=== PATIENT | female | born 1940 | race Caucasian/White ===

== ENCOUNTER → 2016-09-23 | Outpatient (CLI) | payer MEDICARE, OTHER ==
[~2016-09-23] MED LIST: HYDR-3533 PO; LEVO.075 PO; LEVO150T7 PO; LORT5TAB PO
[2016-09-23 09:11] LABS: AUTOMATED NEUTROPHIL # 2.6 TH/MM3 (1.8-7.7); BASOPHIL % 0.9 % (0.0-2.0); EOSINOPHIL # 0.1 TH/MM3 (0-0.4); EOSINOPHIL % 3.1 % (0.0-4.0); HEMATOCRIT 40.4 % (35.0-46.0); HEMO FLAGS DIFF FINAL; LYMPH % 29.5 % (9.0-44.0); LYMPHOCYTE # 1.4 TH/MM3 (1.0-4.8); MEAN CELL VOLUME 93.6 FL (80.0-100.0); MEAN CORPUSCULAR HEMOGLOBIN 30.6 PG (27.0-34.0); MEAN CORPUSCULAR HGB CONC 32.7 % (32.0-36.0); MONO % 11.1 % (0.0-8.0); NEUT % 55.4 % (16.0-70.0); PLATELET COUNT 228 TH/MM3 (150-450); RED BLOOD COUNT 4.32 MIL/MM3 (4.00-5.30); RED CELL DISTRIBUTION WIDTH 14.3 % (11.6-17.2); WHITE BLOOD COUNT 4.7 TH/MM3 (4.0-11.0)
[2016-09-23 09:13] LABS: BLOOD, URINE NEG (NEG); COMMENT (UR) CULT NOT INDICATED; CULTURE IF INDICATED CULT NOT INDICATED; GLUCOSE,URINE NEG (NEG); KETONE, URINE NEG (NEG); MUCUS URINE FEW /lpf (OCC); NITRITE,URINE NEG (NEG); PH, URINE 6.5 (5.0-8.5); URINE COLOR LIGHT-YELLOW (YELLW/STRAW)
[2016-09-23 10:13] LABS: MICRO ALBUMIN RANDOM URINE RAW 23.4 MG/L (0.0-30.0)
[2016-09-23 10:53] LABS: ALKALINE PHOSPHATASE 120 U/L (45-117); ALT (GPT) 21 U/L (10-53); ANION GAP 7 MEQ/L (5-15); AST (GOT) 25 U/L (15-37); BICARBONATE 28.7 MEQ/L (21.0-32.0); BLOOD UREA NITROGEN 22 MG/DL (7-18); CHLORIDE 100 MEQ/L (98-107); FREE T3 2.27 PG/ML (2.18-3.98); FREE T4 1.33 NG/DL (0.76-1.46); GLOMERULAR FILTRATION RATE 57 ML/MIN (>89); GLUCOSE,FASTING 91 MG/DL (74-99); HDL CHOLESTEROL 87.8 MG/DL (40.0-60.0); LDL CHOLESTEROL 89 MG/DL (0-99); POTASSIUM 4.3 MEQ/L (3.5-5.1); SODIUM (NA) 136 MEQ/L (136-145); TOTAL BILIRUBIN ADULT 0.4 MG/DL (0.2-1.0)
== END ==
LOC: PLAB 07:08
PROVIDERS: ATTEND Family Medicine
DX: M85.80 Other specified disorders of bone density and structure, unspecified site (principal); Z00.00 Encounter for general adult medical examination without abnormal findings
CPT/HCPCS: 36415; 80053; 80061; 81001; 82043; 82306; 82607; 84439; 84443; 84481; 85025

== ENCOUNTER → 2016-10-07 | Outpatient (CLI) | payer MEDICARE, OTHER ==
--- NOTE | 2016-10-08 21:01 | EKG ---
Date Performed: 10/07/2016 Time Performed: 13:10:28 PTAGE: 76 years EKG: SINUS BRADYCARDIA LOW QRS VOLTAGE IN PRECORDIAL LEADS BORDERLINE ECG PREVIOUS TRACING : 05/08/2007 20.18 Compared to prior tracing no significant change DOCTOR: Andres Alicea Interpretating Date/Time 10/08/2016 21:01:04
== END ==
LOC: HCAV 12:54
PROVIDERS: ATTEND Ophthalmology
DX: Z01.810 Encounter for preprocedural cardiovascular examination (principal); H25.11 Age-related nuclear cataract, right eye
CPT/HCPCS: 93005

== ENCOUNTER 2017-01-29 12:56 | Emergency (ER) | payer OTHER, MEDICARE ==
[~2017-01-29] VITALS: Ht 162.6 cm; Wt 80.0 kg
[2017-01-29 12:59] VITALS: BP 127/60; PULSE 72; RESP 16; TEMP 98.1; O2SAT 97
[2017-01-29] MEDS ORDERED: LEVO112T2 PO (13:19)
--- NOTE | 2017-01-29 14:12 | PD ---
HPI Chief Complaint: Fall Time Seen by Provider: 13:11 Travel History International Travel<30 days: No Contact w/Intl Traveler<30days: No Traveled to known affect area: No History of Present Illness HPI 77 year-old woman presents emergency department after she slipped sitting in a chair and fell backwards and hit her head. She has tenderness in her head and head pain. No LOC. States she slipped and fell one time last night as well in the rain. She states she has felt a little more unsteady just today. No other recent illnesses or injuries. No other complaints. History Past Medical History Narrative Medical Hypothyroidism History of TIA Social History Alcohol Use: Yes (3X PER WK) Tobacco Use: No Allergies-Medications (Allergen,Severity, Reaction): Coded Allergies: No Known Allergies (Verified , 01/29/17) Reported Meds & Prescriptions Reported Meds & Active Scripts Active Reported Levothyroxine (Levothyroxine Sodium) 112 Mcg Tab 112 Mcg PO DAILY Review of Systems Except as stated in HPI: all other systems reviewed are Neg Physical Exam Narrative GENERAL: Well-appearing 77 year-old woman, no acute distress. SKIN: Focused skin assessment warm/dry. HEAD: Normocephalic. She is a little bit of areas of tenderness in the posterior occiput but no obvious bruising ecchymosis or swelling. EYES: Pupils equal and round. No scleral icterus. No injection or drainage. ENT: No nasal bleeding or discharge. Mucous membranes pink and moist. NECK: She is minimal midline neck tenderness. She has full range of motion of her neck. CARDIOVASCULAR: Regular rate and rhythm. No murmur appreciated. RESPIRATORY: No accessory muscle use. Clear to auscultation. Breath sounds equal bilaterally. GASTROINTESTINAL: Abdomen soft, non-tender, nondistended. Hepatic and splenic margins not palpable. MUSCULOSKELETAL: No obvious deformities. Data Data Last Documented VS Vital Signs Date Time Temp Pulse Resp B/P Pulse Ox O2 Delivery O2 Flow Rate FiO2 01/29/17 12:59 98.1 72 16 127/[address] Brain W/O Iv Contrast(Rout) (01/29/17 ) Acetaminophen (Tylenol) (01/29/17 14:15) MDM Medical Decision Making Medical Screen Exam Complete: Yes Emergency Medical Condition: Yes Interpretation(s) CT head negative. Differential Diagnosis Head injury, neck injury, contusion, other Narrative Course Medical decision-making new para 77-year-old with a slip and fall sitting in a chair and hit her head. She looks well. We'll check CT, likely negative. Outpatient follow-up. No evidence of severe neck injury. Diagnosis Primary Impression: Head injury, closed Additional Instructions: Take Tylenol as needed for pain. Up with her primary physician if you're not completely well in 3-5 days. Return to the emergency department for any new or worsening symptoms. Med/Other Pt SpecificInfo: No Change to Meds Disposition: 01 DISCHARGE HOME Condition: Stable Carter Bryant MD Jan 29, 2017 14:12
[2017-01-29] MEDS ORDERED: ACETAMINOPHEN 500 MG CPLT PO ONE (14:15)
--- NOTE | 2017-01-29 14:24 | RADRPT ---
EXAM DATE/TIME: 01/29/2017 13:57 [facility] COMPARISON: CT BRAIN W/O CONTRAST, March 19, 2016, 15:37. INDICATIONS : Trauma. Fell and hit back of head. Cephalgia. RADIATION DOSE: 64.84 CTDIvol (mGy) MEDICAL HISTORY : Cerebrovascular disease. Hypertension. SURGICAL HISTORY : Hysterectomy. ENCOUNTER: Initial ACUITY: 1 day PAIN SCALE: 8/10 LOCATION: cranial TECHNIQUE: Multiple contiguous axial images were obtained of the head. Using automated exposure control and adj ustment of the mA and/or kV according to patient size, radiation dose was kept as low as reasonably a chievable to obtain optimal diagnostic quality images. DICOM format image data is available electro nically for review and comparison. FINDINGS: CEREBRUM: The ventricles are normal for age. No evidence of midline shift, mass lesion, hemorrhage or acute in farction. No extra-axial fluid collections are seen. POSTERIOR FOSSA: The cerebellum and brainstem are intact. The 4th ventricle is midline. The cerebellopontine angle i s unremarkable. EXTRACRANIAL: The visualized portion of the orbits is intact. SKULL: The calvaria is intact. No evidence of skull fracture. CONCLUSION: Negative for an acute process. Carlos Burns MD FACR on January 29, 2017 at 14:21 Board Certified Radiologist. This report was verified electronically.
[2017-01-29 14:31] VITALS: BP 135/75
== END 2017-01-29 14:35 | disposition home or self-care (01) ==
LOC: PHED 12:56
DX: S09.90XA Unspecified injury of head, initial encounter (principal); E03.9 Hypothyroidism, unspecified; Z86.73 Personal history of transient ischemic attack (TIA), and cerebral infarction without residual deficits; W07.XXXA Fall from chair, initial encounter
CPT/HCPCS: 70450

== ENCOUNTER → 2017-06-03 | Outpatient (CLI) | payer MEDICARE, OTHER ==
[~2017-06-03] MED LIST changes: -HYDR-3533 PO; -LEVO.075 PO; +LEVO112T2 PO; -LEVO150T7 PO; -LORT5TAB PO
[2017-06-03 17:04] LABS: TOTAL PROTEIN SPE 7.6 GM/DL (6.0-7.6)
[2017-06-03 22:20] LABS: ALBUMIN SPE 4.88 GM/DL (3.50-5.00); ALPHA 1 GLOBULIN 0.21 GM/DL (0.11-0.29); ALPHA 2 GLOBULIN 0.87 GM/DL (0.22-1.00); BETA GLOBULINS (SPE) 0.79 GM/DL (0.53-1.03)
[2017-06-04 17:33] LABS: ANA SCREEN POS (NEG)
== END ==
LOC: PLAB 13:03
PROVIDERS: ATTEND Specialist
DX: M31.6 Other giant cell arteritis (principal); R70.0 Elevated erythrocyte sedimentation rate; E53.1 Pyridoxine deficiency
CPT/HCPCS: 36415; 82607; 84165; 85652; 86038; 86039